=== PATIENT | male | born 1980 | race Caucasian/White ===

== ENCOUNTER 2020-04-28 19:33 | Emergency (ER) | payer MEDICAID ==
[~2020-04-28] VITALS: Ht 185.4 cm; Wt 79.4 kg
[2020-04-28 20:01] VITALS: BP 122/82
[2020-04-28] MEDS ORDERED: VALACYCLOVIR500 MG ORAL (20:04)
[2020-04-28] MEDS ORDERED: PREDNISONE20 MG ORAL (20:06)
[2020-04-28] MEDS ORDERED: NORCO 5-325 TA1 EAC1 ORAL (20:06)
[2020-04-28 20:12] VITALS: BP 122/82
[2020-04-28] MEDS ORDERED: HYDROcodone/Acetamin 5/325 tab ORAL ONE (20:15)
--- NOTE | 2020-04-28 21:57 | Emergency Room Report ---
History of Present Illness General Chief Complaint: Skin Rash/Abscess Source: Patient Present Illness HPI 39-year-old male here with rash on his left mid abdomen radiating to his left thoracic back. Patient has never had symptoms like this before. Patient says "I looked it up and I am pretty sure it is shingles." Symptoms started 2 days ago. No fevers, chills, drainage from the wounds. Allergies: Coded Allergies: No Known Allergies (Unverified , 04/28/20) COVID-19 Screening Contact w/high risk pt: No Experienced COVID-19 symptoms?: No COVID-19 Testing performed TRUCKER: No Nursing Documentation-PMH Hx Asthma: Yes Review of Systems All Other Systems: negative except mentioned in HPI Physical Exam Vital Signs Date Time Temp Pulse Resp B/P (MAP) Pulse Ox O2 Delivery O2 Flow Rate FiO2 04/28/20 19:47 98.2 89 18 122/82 (95) 97 Room Air Sp02 EP Interpretation: reviewed, normal General Appearance: no apparent distress, alert, non-toxic Head: normocephalic, atraumatic Eyes: bilateral eye normal inspection, bilateral eye PERRL ENT: hearing grossly normal, normal pharynx, no angioedema, normal voice Neck: full range of motion, supple/symm/no masses Respiratory: chest non-tender, lungs clear, normal breath sounds, speaking full sentences Cardiovascular #1: regular rate, rhythm, no edema Cardiovascular #2: 2+ carotid (R), 2+ carotid (L), 2+ radial (R), 2+ radial (L), 2+ dorsalis pedis (R), 2+ dorsalis pedis (L) Gastrointestinal: normal bowel sounds, non tender, soft, non-distended, no guarding, no rebound Rectal: deferred Genitourinary: normal inspection, no CVA tenderness Musculoskeletal: back normal, normal range of motion, calf tenderness, gait/station normal, non-tender Neurologic: alert, motor strength/tone normal, sensory intact, responsive, speech normal Psychiatric: judgement/insight normal, memory normal, mood/affect normal, no suicidal/homicidal ideation Skin: other - Maculopapular vesicular rash of the lateral left upper abdomen radiating around the left flank and left thoracic area in a single dermatome Lymphatic: no adenopathy Medical Decision Making Diagnostic Impression: Primary Impression: Shingles ER Course ddx: Dermatitis (atopic/contact) allergic reaction, insect bite, bed bugs/scabies, viral exanthem, cellulitis, SJS, TEN, nec fasc, petechiae, shingles 39-year-old male here with rash. The erythematous maculopapular vesicular rash appeared to be herpes zoster shingles. Patient was given prescription for Valtrex, prednisone, [place]. He was given a dose of [place] here. Patient did not drive to the emergency department. He was given information to come back to the emergency department if he has worsening signs of infection such as drainage, erythema extending from the wounds. There is no evidence of any cellulitis or other serious infection occurring on top of the shingles infection. Discharged in stable condition. Last Vital Signs Date Time Temp Pulse Resp B/P (MAP) Pulse Ox O2 Delivery O2 Flow Rate FiO2 04/28/20 20:12 98.2 87 18 122/82 97 Room Air Disposition: HOME, SELF-CARE Condition: Stable Scripts Hydrocodone Bit/Acetaminophen 5-325* (NORCO 5-325 TABLET*) 1 Each Tablet 1 TAB ORAL Q4H PRN for For Pain, #10 TAB Prov: Phillip Cifuentes M.D. 04/28/20 Prednisone* (PREDNISONE*) 20 Mg Tablet 40 MG ORAL DAILY for 5 Days, TAB Prov: Phillip Cifuentes M.D. 04/28/20 Valacyclovir Hcl* (VALTREX*) 500 Mg Tablet 1000 MG ORAL TID for 7 Days, TAB Prov: Phillip Cifuentes M.D. 04/28/20 Referrals: NOT CHOSEN IPA/,REFERRING (PCP) [facility]. [facility] Patient Instructions: Shingles Additional Instructions: Please follow-up with your primary care doctor in the next 1 to 3 days to discuss this emergency department visit and for reevaluation. If you have any new or worsening symptoms please return to the emergency department for reevaluation. Phillip Cifuentes M.D. Apr 28, 2020 21:57
== END 2020-04-28 20:12 | disposition home or self-care (01) ==
LOC: EMR 20:07
DX: B02.9 Zoster without complications (principal); J45.909 Unspecified asthma, uncomplicated
CPT/HCPCS: 99282